=== PATIENT | male | born 1965 | race Asian ===

== ENCOUNTER 2016-11-10 12:22 | Day surgery (SDC) | payer OTHER ==
[~2016-11-10] VITALS: Ht 172.7 cm; Wt 78.1 kg
[2016-11-10 13:24] VITALS: Ht 172.7 cm; Wt 78.1 kg
[2016-11-10] MEDS ORDERED: NO DAILY MEDS (13:26)
[2016-11-10 13:58] VITALS: BP 103/58; PULSE 60; RESP 13
--- NOTE | 2016-11-10 14:53 | OPPN ---
Date/Time of Note Date/Time of Note DATE: 11/10/16 TIME: 14:52 Operative Report Preoperative Diagnosis Screening colonoscopy Postoperative Diagnosis 3 small colon polyps were removed Internal hemorrhoids Operation/Procedure Performed Colonoscopy and biopsy Anesthesia: other Estimated blood loss: none Specimens Biopsy of colon polyps Complications: None BREANA ZUNIGA MD Nov 10, 2016 14:53
[2016-11-10] MEDS ORDERED: MIDAZOLAM 1 MG/ML 2 ML INJ ONE ×2 (15:11)
[2016-11-10] MEDS ORDERED: FENTAnyl 50 MCG/ML VIAL ONE (15:11)
[2016-11-10 15:21] VITALS: BP 95/53; PULSE 50; RESP 14
--- NOTE | 2016-11-10 16:37 | GILP ---
DATE OF PROCEDURE: 11/10/2016 PROCEDURE PERFORMED: Colonoscopy and biopsy. SURGEON: Bia Khan MD PREOPERATIVE DIAGNOSIS: Screening colonoscopy. POSTOPERATIVE DIAGNOSES: 1. Colonoscopy all the way to the cecum. 2. Three small colon polyps were removed using biopsy forceps. 3. Internal hemorrhoids. INDICATION: Mr. Rajinder Lemus is a 50-year-old male patient who is scheduled for screening colonoscopy. The procedure and possible complications were well explained to the patient. The patient understood and consented to the procedure. DESCRIPTION OF PROCEDURE: Under the influence of fentanyl and Versed, the colonoscope was carefully introduced in the rectum and under direct vision it was advanced all the way to the cecum. FINDINGS: The patient had 3 small colon polyps, and they were removed using the biopsy forceps. He had internal hemorrhoids. He tolerated the procedure very well. There were no complications from the procedure. At the end of the procedure, he was awake with stable vital signs and he was discharged home in care of his family. IMPRESSION: Please see postop diagnoses. PLAN: 1. Await histopathology report. 2. Next screening colonoscopy in 5 years. Dictated By: MD EUGENIA Gamboa/[email or web address] /Document#: [id number]
== END 2016-11-10 17:53 | disposition home or self-care (01) ==
LOC: GIL 12:22
PROVIDERS: ATTEND Internal Medicine Gastroenterology
DX: Z12.11 Encounter for screening for malignant neoplasm of colon (principal); K63.5 Polyp of colon
CPT/HCPCS: 45380; 88305; J2250; J3010; Z7610